=== PATIENT | female | born 1995 | race Caucasian/White ===

== ENCOUNTER → 2017-05-22 | Outpatient (CLI) | payer BC ==
[~2017-05-22] MED LIST: birth control PO; melatonin PO
[2017-05-22 13:36] LABS: BASO % 0.3 % (0.0-1.0); EOS # 0.1 10^3/uL (0.0-0.50); IMMATURE GRANULOCYTE % 0.4 % (0-0); LYMPH % 20.7 % (24.0-44.0); MEAN CORPUSCULAR HEMOGLOBIN 30.7 pg (27.0-33.0); MEAN CORPUSCULAR HGB CONC 33.9 g/dl (32.0-36.5); MEAN CORPUSCULAR VOLUME 90.5 fl (80.0-96.0); MONO # 0.8 10^3/uL (0.0-0.8); MONO % 8.5 % (0.0-5.0); NEUTROPHILS # 6.6 10^3/uL (1.8-7.7); NEUTROPHILS % 69.1 % (36.0-66.0); PLATELET COUNT, AUTOMATED 259 10^3/uL (150-450); RED CELL DISTRIBUTION WIDTH 13.7 % (11.5-14.5); WHITE BLOOD COUNT 9.6 10^3/uL (4.0-10.0)
[2017-05-22 14:08] LABS: HBsAg Prenatal NEGATIVE (NEGATIVE)
== END ==
LOC: M LAB 12:17
PROVIDERS: ATTEND Advanced Practice Midwife
DX: Z3A.09 9 weeks gestation of pregnancy (principal)

== ENCOUNTER → 2017-06-25 | Outpatient (CLI) | payer OTHER ==
[2017-06-25 13:36] LABS: CREATININE,RANDOM URINE 60.4 MG/DL
[2017-06-25 13:36] LABS: TOTAL PROTEIN,RANDOM URINE 5.6 MG/DL (0.0-12.0)
[2017-06-25 13:46] LABS: ALT/SGPT 18 U/L (12-78); AST/SGOT 12 U/L (7-37); BILIRUBIN,TOTAL 0.2 MG/DL (0.2-1.0); CREATININE FOR GFR 0.44 MG/DL (0.55-1.02); GLOMERULAR FILTRATION RATE > 60.0 (>60); LDH LACTATE DEHYDROGENASE 123 U/L (84-246); URIC ACID 2.7 MG/DL (2.6-6.0)
== END ==
LOC: M LAB 12:17
DX: O10.011 Pre-existing essential hypertension complicating pregnancy, first trimester (principal); Z3A.00 Weeks of gestation of pregnancy not specified
CPT/HCPCS: 84460

== ENCOUNTER → 2017-07-10 | Outpatient (REF) | payer OTHER | LOC: M LAB REF 17:21 | DX: M54.5 Low back pain (principal) ==

== ENCOUNTER → 2017-08-04 | Outpatient (CLI) | payer OTHER | LOC: M RAD 09:58 | DX: Z34.82 Encounter for supervision of other normal pregnancy, second trimester (principal) | CPT/HCPCS: 76811 ==

== ENCOUNTER → 2017-09-10 | Outpatient (CLI) | payer OTHER | LOC: M RAD 11:44 | DX: Z36.9 Encounter for antenatal screening, unspecified (principal); Z3A.25 25 weeks gestation of pregnancy | CPT/HCPCS: 76816 ==

== ENCOUNTER → 2017-09-17 | Outpatient (CLI) | payer OTHER ==
[2017-09-17 13:32] LABS: HEMATOCRIT 33.9 % (36.0-47.0); HEMOGLOBIN 11.5 g/dl (12.0-15.5); MEAN CORPUSCULAR HEMOGLOBIN 31.1 pg (27.0-33.0); MEAN CORPUSCULAR HGB CONC 33.9 g/dl (32.0-36.5); MEAN CORPUSCULAR VOLUME 91.6 fl (80.0-96.0); PLATELET COUNT, AUTOMATED 232 10^3/uL (150-450); RED CELL DISTRIBUTION WIDTH 13.1 % (11.5-14.5); WHITE BLOOD COUNT 12.6 10^3/uL (4.0-10.0)
[2017-09-17 13:48] LABS: GLUCOSE CHALLENGE TEST 1 HOUR 82 MG/DL (LESS THAN 140)
== END ==
LOC: M LAB 11:31
DX: Z34.02 Encounter for supervision of normal first pregnancy, second trimester (principal)

== ENCOUNTER → 2017-11-27 | Outpatient (REF) | payer OTHER | LOC: M LAB REF 16:53 | DX: Z34.83 Encounter for supervision of other normal pregnancy, third trimester (principal); Z3A.00 Weeks of gestation of pregnancy not specified | CPT/HCPCS: 87081 ==

== ENCOUNTER → 2017-12-04 | Outpatient (CLI) | payer OTHER | LOC: M RAD 15:12 | DX: Z36.89 Encounter for other specified antenatal screening (principal); Z3A.37 37 weeks gestation of pregnancy | CPT/HCPCS: 76816 ==

== ENCOUNTER 2017-12-08 13:10 | Inpatient (IN) | payer OTHER ==
[2017-12-08 15:15] LABS: HEMATOCRIT 34.8 % (36.0-47.0); HEMOGLOBIN 11.7 g/dl (12.0-15.5); MEAN CORPUSCULAR HEMOGLOBIN 30.4 pg (27.0-33.0); MEAN CORPUSCULAR HGB CONC 33.6 g/dl (32.0-36.5); MEAN CORPUSCULAR VOLUME 90.4 fl (80.0-96.0); PLATELET COUNT, AUTOMATED 240 10^3/uL (150-450); RED BLOOD COUNT 3.85 10^6/uL (4.00-5.40); RED CELL DISTRIBUTION WIDTH 13.4 % (11.5-14.5); WHITE BLOOD COUNT 18.8 10^3/uL (4.0-10.0)
[2017-12-08] MEDS: miSOPROStol 50 MCG 1/2 TAB (S0191) PO ×3 (15:16→23:44)
[2017-12-09] MEDS: miSOPROStol 50 MCG 1/2 TAB (S0191) SL ×2 (10:33→14:00)
== END 2017-12-09 16:29 | disposition home or self-care (01) | DRG 774 ==
LOC: M LDI 13:10
PROVIDERS: Specialist
PROC: 3E033VJ Introduction of Other Hormone into Peripheral Vein, Percutaneous Approach (ICD-10-PCS; principal; 2017-12-08)
DX: O10.92 Unspecified pre-existing hypertension complicating childbirth (principal); O61.0 Failed medical induction of labor; Z3A.38 38 weeks gestation of pregnancy; F17.210 Nicotine dependence, cigarettes, uncomplicated; O99.333 Smoking (tobacco) complicating pregnancy, third trimester

== ENCOUNTER 2017-12-16 23:47 | Inpatient (IN) | payer OTHER ==
[2017-12-17 01:00] LABS: HEMATOCRIT 34.8 % (36.0-47.0); HEMOGLOBIN 11.9 g/dl (12.0-15.5); MEAN CORPUSCULAR HEMOGLOBIN 30.6 pg (27.0-33.0); MEAN CORPUSCULAR HGB CONC 34.2 g/dl (32.0-36.5); MEAN CORPUSCULAR VOLUME 89.5 fl (80.0-96.0); PLATELET COUNT, AUTOMATED 268 10^3/uL (150-450); RED BLOOD COUNT 3.89 10^6/uL (4.00-5.40); RED CELL DISTRIBUTION WIDTH 13.4 % (11.5-14.5); WHITE BLOOD COUNT 16.6 10^3/uL (4.0-10.0)
[2017-12-17 01:13] LABS: ALT/SGPT 18 U/L (12-78); AST/SGOT 18 U/L (7-37); BILIRUBIN,TOTAL 0.2 MG/DL (0.2-1.0); CREATININE FOR GFR 0.57 MG/DL (0.55-1.30); GLOMERULAR FILTRATION RATE > 60.0 (>60); LDH LACTATE DEHYDROGENASE 197 U/L (84-246); URIC ACID 4.1 MG/DL (2.6-6.0)
[2017-12-17 01:21] LABS: CREATININE,RANDOM URINE 23.8 MG/DL
[2017-12-17 01:21] LABS: TOTAL PROTEIN,RANDOM URINE < 5.0 MG/DL (0.0-12.0)
[2017-12-17] MEDS: LR 1,000 ML IV ×2 (02:06→21:11)
[2017-12-17] MEDS: miSOPROStol 50 MCG 1/2 TAB (S0191) PO ×2 (02:06→06:49)
[2017-12-17] MEDS: miSOPROStol 100 MCG TAB (S0191) PO (11:20)
[2017-12-17] MEDS ORDERED: OXYTOCIN 30 UNITS IN 0.9% NaCl 500ML IV BAG (J2590) As Ordered (16:35)
[2017-12-17] MEDS: OXYTOCIN DRIP 30 UNITS in APPROPRIATE DILUENT 1 EA IV (16:46)
[2017-12-17] MEDS ORDERED: FENTANYL 2MCG/ML ROPIVACAINE 0.2% IN 0.9% NACL 200ML IVBAG As Ordered (21:23)
[2017-12-17] MEDS ORDERED: ONDANSETRON 4MG/2ML VIAL (J2405) IV (21:25)
[2017-12-17] MEDS ORDERED: LACTATED RINGER'S 1000 ML IV (21:25)
[2017-12-17] MEDS ORDERED: diphenhydrAMINE INJ 50MG/ML VIAL (J1200) IV (21:25)
[2017-12-17] MEDS ORDERED: NALOXONE INJ 0.4 MG/1 ML VIAL (J2310) IV (21:25)
[2017-12-17] MEDS ORDERED: EPIDURAL/PCA KEYS XX (21:25)
[2017-12-17] MEDS ORDERED: EPIDURAL COMMENT XX (21:25)
[2017-12-17] MEDS ORDERED: REFRIGERATOR IV KEYS XX (21:25)
[2017-12-17] MEDS ORDERED: FENTANYL/ROPIVACAINE/NACL BAG 200 ML EPIDURAL (21:25)
[2017-12-17] MEDS ORDERED: ePHEDrine SULFATE 25 MG/5 ML(5MG/ML) SYRINGE IV (21:25)
[2017-12-18] MEDS ORDERED: ceFAZolin 2 GM/D5W 50 ML IV BAG (J0690 PER 500MG) As Ordered (00:04)
[2017-12-18] MEDS ORDERED: BICITRA 30ML SOLN UDC As Ordered (00:04)
[2017-12-18] MEDS: BICITRA 30ML SOLN UDC PO (00:15)
[2017-12-18] MEDS ORDERED: ONDANSETRON 4MG/2ML VIAL (J2405) As Ordered (00:33)
[2017-12-18] MEDS ORDERED: KETOROLAC 60 MG/2 ML VIAL (J1885) As Ordered (00:33)
[2017-12-18] MEDS ORDERED: SODIUM BICARBONATE 8.4% INJ 50 ML SYRINGE As Ordered (00:33)
[2017-12-18] MEDS ORDERED: OXYTOCIN INJ 10 UNITS/ML VIAL (J2590) As Ordered (00:33)
[2017-12-18] MEDS ORDERED: dexameTHASONE 4 MG/ML 1ML VIAL (J1100) As Ordered (00:33)
[2017-12-18] MEDS ORDERED: MORPHINE PRES-FREE INJ 10 MG/10 ML VIAL (J2274) As Ordered (00:33)
[2017-12-18] MEDS ORDERED: LIDOCAINE 2% W/EPIN INJ 20ML **PRES FREE As Ordered (00:33)
[2017-12-18 00:40] LABS: CORD GAS ABE A -0.9; CORD GAS O2 SAT A 19.7 %; CORD GAS PH A 7.316 UNITS; CORD GAS PO2 A 13.3 mmHg; CORD GAS SBC A 21.9 MEQ/L; CORD GAS TCO2 A 27.5 MEQ/L
[2017-12-18] MEDS ORDERED: ONDANSETRON 4MG/2ML VIAL (J2405) IV ×2 (00:40→01:00)
[2017-12-18] MEDS ORDERED: NALOXONE INJ 0.4 MG/1 ML VIAL (J2310) IV ×2 (00:40)
[2017-12-18] MEDS ORDERED: METOCLOPRAMIDE INJ 10MG/2ML VIAL (J2765) IV (00:40)
[2017-12-18 00:41] LABS: CORD GAS HCO3 V 22.2 MEQ/L; CORD GAS O2 SAT V 54.6 %; CORD GAS PCO2 V 44.4 mmHg; CORD GAS PH V 7.316 UNITS; CORD GAS PO2 V 23.8 mmHg; CORD GAS SBC V 20.2 MEQ/L; CORD GAS TCO2 V 23.5 MEQ/L
[2017-12-18] MEDS: LR 1,000 ML IV ×4 (01:00→17:09)
[2017-12-18] MEDS ORDERED: fentaNYL 100 MCG/2 ML INJECTION (J3010) IV (01:00)
[2017-12-18] MEDS ORDERED: NALBUPHINE HCL 10 MG/ML AMP (J2300) IV (01:00)
[2017-12-18] MEDS: OXYTOCIN DRIP 30 UNITS in APPROPRIATE DILUENT 1 EA IV (01:09)
[2017-12-18] MEDS ORDERED: MOM 30ML SUSPENSION UDC PO (01:15)
[2017-12-18] MEDS ORDERED: OXYTOCIN 30 UNITS IN 0.9% NaCl 500ML IV BAG (J2590) As Ordered (02:30)
[2017-12-18] MEDS: NALBUPHINE HCL 10 MG/ML AMP (J2300) IV ×3 (04:53→19:39)
[2017-12-18] MEDS: KETOROLAC 30 MG/ML VIAL (J1885) IV ×3 (06:11→19:40)
[2017-12-18] MEDS: PRENATAL VITAMINS CHEWABLE TABLET PO (12:56)
[2017-12-19] MEDS: IBUPROFEN 800 MG TAB PO ×3 (02:34→19:02)
[2017-12-19] MEDS: RHOGAM 300 MCG (1500 IU) INJ (J2790) IM (05:02)
[2017-12-19] MEDS: MEASLES,MUMPS,RUBELLA VACCINE INJ (MMR-II) (90707) SC (05:02)
[2017-12-19] MEDS: PERCOCET 5MG/325MG TAB PO ×5 (05:07→21:22)
[2017-12-19 06:24] LABS: HEMATOCRIT 30.1 % (36.0-47.0); HEMOGLOBIN 10.1 g/dl (12.0-15.5); MEAN CORPUSCULAR HEMOGLOBIN 30.5 pg (27.0-33.0); MEAN CORPUSCULAR HGB CONC 33.6 g/dl (32.0-36.5); MEAN CORPUSCULAR VOLUME 90.9 fl (80.0-96.0); PLATELET COUNT, AUTOMATED 222 10^3/uL (150-450); RED BLOOD COUNT 3.31 10^6/uL (4.00-5.40); RED CELL DISTRIBUTION WIDTH 13.6 % (11.5-14.5); WHITE BLOOD COUNT 13.7 10^3/uL (4.0-10.0)
[2017-12-19] MEDS: PRENATAL VITAMINS CHEWABLE TABLET PO (09:10)
[2017-12-20] MEDS: IBUPROFEN 800 MG TAB PO ×2 (02:18→10:54)
[2017-12-20] MEDS: PERCOCET 5MG/325MG TAB PO ×3 (04:32→13:00)
[2017-12-20] MEDS: PRENATAL VITAMINS CHEWABLE TABLET PO (08:27)
[2017-12-20] MEDS: ADACEL/BOOSTRIX VACCINE (DIPHTH/PERTUSS/ACELL/TETANUS)0.5ML SYR (90715) IM (13:18)
== END 2017-12-20 13:20 | disposition home or self-care (01) | DRG 766 ==
LOC: M LDI 23:47 → M OBS 12-18 03:00
PROVIDERS: Advanced Practice Midwife
PROC: 10D00Z1 Extraction of Products of Conception, Low, Open Approach (ICD-10-PCS; principal; 2017-12-18 00:13)
PROC: 3E0P7VZ Introduction of Hormone into Female Reproductive, Via Natural or Artificial Opening (ICD-10-PCS; 2017-12-18 00:13)
DX: O10.92 Unspecified pre-existing hypertension complicating childbirth (principal); F17.200 Nicotine dependence, unspecified, uncomplicated; Z37.0 Single live birth; Z3A.39 39 weeks gestation of pregnancy; O99.334 Smoking (tobacco) complicating childbirth; O76 Abnormality in fetal heart rate and rhythm complicating labor and delivery